=== PATIENT | female | born 1975 | race African-American/Black ===

== ENCOUNTER 2024-09-13 16:33 | Emergency (ER) | payer OTHER, MEDICAID ==
[~2024-09-13] VITALS: Ht 154.9 cm; Wt 86.4 kg
[2024-09-13 16:42] VITALS: O2SAT 100
[2024-09-13 17:11] LABS: BASOPHILS % 1.1 % (0.0-2.0); EOSINOPHILS % 1.4 % (0.0-5.0); HEMATOCRIT. 39.1 % (36.0-48.0); HEMOGLOBIN. 12.9 g/dL (12.0-16.0); MEAN CORPUSCULAR HEMOGLOBIN 26.9 pg (28.0-32.0); MEAN CORPUSCULAR VOLUME 81.3 fL (81.0-99.0); MEAN PLATELET VOLUME 8.4 fl (7.4-10.4); MONOCYTES % 5.7 % (2.0-8.0); NEUTROPHILS % 51.8 % (40.0-76.0); PLATELET 294 x1000/uL (130-400); RED BLOOD CELL COUNT 4.82 mill/uL (4.2-5.4); RED CELL DISTRIBUTION WIDTH 14.6 % (11.6-14.6); WHITE BLOOD COUNT 7.8 x1000/uL (4.5-11.0)
[2024-09-13 17:18] LABS: CHLORIDE 107 mEq/L (98-107); POTASSIUM 3.5 mEq/L (3.5-5.1); SODIUM 140 mEq/L (136-145)
[2024-09-13 17:19] LABS: CALCIUM 9.2 mg/dL (8.7-10.4); CARBON DIOXIDE 23 mEq/L (21-32)
[2024-09-13 17:24] LABS: CREATININE 0.7 mg/dL (0.6-1.0); GLUCOSE 128 mg/dL (70-105); UREA NITROGEN BLOOD 7 mg/dL (9-23)
[2024-09-13 17:26] LABS: TROPONIN I HIGH SENSITIVITY < 4 ng/L (3.0-34)
[2024-09-13] MEDS: METOCLOPRAMIDE HCL 10MG TABLET PO ONE (17:30)
[2024-09-13] MEDS: DIPHENHYDRAMINE 25MG CAPSULE PO ONE (17:30)
[2024-09-13] MEDS: KETOROLAC 30MG/ML VIAL IM ONE (17:32)
[2024-09-13 18:43] LABS: CLARITY URINE CLEAR (CLEAR); COLOR URINE YELLOW (YELLOW); GLUCOSE URINE NEGATIVE (NEGATIVE); KETONES URINE NEGATIVE (NEGATIVE); LEUKOCYTE ESTERASE URINE NEGATIVE (NEGATIVE); NITRITE URINE NEGATIVE (NEGATIVE); OCCULT BLOOD URINE NEGATIVE (NEGATIVE); PH URINE 6.5 (4.5-8.0); PROTEIN URINE NEGATIVE (NEGATIVE)
[2024-09-13 18:57] LABS: UCG KIT EXPIRATION DATE 11/27/2026; UCG SCREEN NEGATIVE
[2024-09-13 19:33] VITALS: BP 147/91; PULSE 67; RESP 12; TEMP 36.9; O2SAT 100
== END 2024-09-13 19:40 | disposition home or self-care (01) ==
LOC: ER 16:33
DX: G43.109 Migraine with aura, not intractable, without status migrainosus (principal); Z90.49 Acquired absence of other specified parts of digestive tract; Z90.710 Acquired absence of both cervix and uterus; Z79.899 Other long term (current) drug therapy
CPT/HCPCS: 99285; 70450; 80048; 81003; 81025; 82962; 85025; 84484; 36415; 93005; 96372; J1885; Q0163; J8597